=== PATIENT | male | born 1950 | race Caucasian/White ===

== ENCOUNTER 2016-06-26 18:09 | Emergency (ER) | payer MEDICARE, MEDICAID ==
[~2016-06-26] VITALS: Ht 170.2 cm; Wt 62.0 kg
[~2016-06-26 18:09] MED LIST: BACT800T5 PO; CEPH500C3 PO; CLIN1CAP5 PO; OXYC5 PO; XANA1TAB6 PO
[2016-06-26 18:11] VITALS: BP 171/94; PULSE 84; RESP 17; TEMP 97.8; O2SAT 98
[2016-06-26 18:12] VITALS: BP 138/87
--- NOTE | 2016-06-26 18:28 | PD ---
Physical Exam Time Seen by Provider: 18:23 Narrative 65yo M c/o elevated bp in PCP office. Was given clonidine by PCP about 3hrs ago w/ decrease in BP. PCP wanted him to come to ER for evaluation. Did not give him script for medication. Denies symptoms in PCP office when BP elevated. Denies chest pain, SOB, nausea, vomiting, blurred vision, diaphoresis. Has no current medical complaints. Has f/u appt w/ PCP tomorrow. Patient stable. Patient seen in triage. Awaiting bed placement. Data Data Last Documented VS Vital Signs Date Time Temp Pulse Resp B/P Pulse Ox O2 Delivery O2 Flow Rate FiO2 06/26/16 18:12 138/87 06/26/16 18:11 97.8 84 17 98 MDM Supervised Visit with LAUREN: Lorrie Combs Jun 26, 2016 18:28
--- NOTE | 2016-06-26 18:30 | PD ---
HPI . High blood pressure earlier today Chief Complaint: Hypertension Time Seen by Provider: 18:30 Travel History International Travel<30 days: No Contact w/Intl Traveler<30days: No Traveled to known affect area: No History of Present Illness HPI 65-year-old male with history of jaw cancer here with complaints of elevated blood pressure while being seen by his primary care provider. Patient says that he went to see his primary care provider for the first time today and his blood pressure was elevated. In the office he was given a clonidine, that brought his blood pressure down somewhat and he was told to come to the emergency department for further evaluation. Patient says that his primary care provider told him that he would have a whole slew of tests performed since his blood pressure was elevated. Here in the emergency department patient's blood pressure is within normal limits. He denies any chest pain, nausea, vomiting, diaphoresis or shortness of breath. He has no stroke-like symptoms. He is actually very comfortable and says he is not certain why he is here. He does have an appointment with his primary care provider tomorrow for another blood pressure recheck. He came here requesting some clonidine because that is what he was given. He has no other complaints. He is accompanied by his . PFSH Past Medical History Cancer: Yes (throat) Cardiovascular Problems: Yes (HYPERTENSION) Diabetes: No Hepatitis: No Hiatal Hernia: No Thyroid Disease: No Past Surgical History Abdominal Surgery: Yes (RIGHT ING. HERNIA REP) Genitourinary Surgery: Yes (lithotripsy with laser) Pacemaker: No Social History Tobacco Use: Yes Allergies-Medications (Allergen,Severity, Reaction): Coded Allergies: *MDRO Multi-Drug Resistant Organism (Unverified Adverse Reaction, Unknown , 06/26/16) MRSA 2013 Reported Meds & Prescriptions Reported Meds & Active Scripts Active Reported Xanax (Alprazolam) 1 Mg Tab 1 Mg PO Q8H PRN Oxycodone (Oxycodone HCl) 20 Mg Tab 20 Mg PO Q8H PRN Review of Systems General / Constitutional: No: Fever Eyes: No: Visual changes HENT: No: Headaches Cardiovascular: No: Chest Pain or Discomfort Respiratory: No: Shortness of Breath Gastrointestinal: No: Abdominal Pain Genitourinary: No: Dysuria Musculoskeletal: No: Pain Skin: No Rash Neurologic: No: Weakness Psychiatric: No: Depression Endocrine: No: Polydipsia Hematologic/Lymphatic: No: Easy Bruising Physical Exam Narrative GENERAL: AAO x 3, no acute distress, Well-nourished, well-developed patient. SKIN: Warm and dry. No visible rashes or bruising. HEAD: Normocephalic and atraumatic. EYES: No scleral icterus. No injection or drainage. ENT: No nasal drainage noted. . Airway patent. NECK: Supple, trachea midline. No JVD. CARDIOVASCULAR: Regular rate and rhythm without murmurs, gallops, or rubs. RESPIRATORY: Breath sounds equal bilaterally. No accessory muscle use. No rhonchi or rales. GASTROINTESTINAL: Abdomen soft, non-tender, nondistended. EXTREMITIES: No cyanosis or edema. BACK: Nontender without obvious deformity. No CVA tenderness. PSYCH: AAO x 3, normal affect. Data Data Last Documented VS Vital Signs Date Time Temp Pulse Resp B/P Pulse Ox O2 Delivery O2 Flow Rate FiO2 06/26/16 18:43 Room Air 06/26/16 18:12 138/87 06/26/16 18:11 97.8 84 17 98 MDM Medical Decision Making Medical Screen Exam Complete: Yes Emergency Medical Condition: Yes Medical Record Reviewed: Yes Differential Diagnosis White coat syndrome, newly diagnosed hypertension, less likely hypertensive urgency or emergency Narrative Course 65-year-old male with history of jaw cancer here with complaints of elevated blood pressure while being seen by his primary care provider. Patient says that he went to see his primary care provider for the first time today and his blood pressure was elevated. In the office he was given a clonidine, that brought his blood pressure down somewhat and he was told to come to the emergency department for further evaluation. Patient says that his primary care provider told him that he would have a whole slew of tests performed since his blood pressure was elevated. Here in the emergency department patient's blood pressure is within normal limits. He denies any chest pain, nausea, vomiting, diaphoresis or shortness of breath. He has no stroke-like symptoms. He is actually very comfortable and says he is not certain why he is here. He does have an appointment with his primary care provider tomorrow for another blood pressure recheck. He came here requesting some clonidine because that is what he was given. He has no other complaints. He is accompanied by his . Patient seen and examined. Examination is unremarkable. He is very comfortable and does not have high blood pressure. He does not have any chest pain, shortness of breath, nausea, vomiting, diaphoresis or other complaints. I've explained to him that unfortunately I do not recommend starting clonidine, based off of one reading. I've discussed that blood pressure is better controlled with longer acting medication rather than clonidine, which will be determined by his primary care provider. I've explained that there is no indication for me to start clonidine in the ED. Patient was very understanding. Patient verbalized understanding of instructions, questions were answered, and thanked me for their care. I advised them if their condition worsens, please return to the nearest emergency room for further care. Diagnosis Primary Impression: Elevated blood pressure reading without diagnosis of hypertension Patient Instructions: General Instructions Additional Instructions: Please follow-up with her primary care provider for further workup and treatment. Return to the emergency department if you develop any worsening of symptoms. Med/Other Pt SpecificInfo: No Change to Meds Disposition: 01 DISCHARGE HOME Condition: Stable Sil Kruse Jun 26, 2016 18:30
[2016-06-26] MEDS ORDERED: OXYC-396 PO (18:42)
[2016-06-26] MEDS ORDERED: XANA1TAB2 PO (18:42)
== END 2016-06-26 19:24 | disposition home or self-care (01) ==
LOC: NEPK 18:09
DX: R03.0 Elevated blood-pressure reading, without diagnosis of hypertension (principal); Z72.0 Tobacco use; Z85.89 Personal history of malignant neoplasm of other organs and systems
CPT/HCPCS: 99283